=== PATIENT | male | born 2000 | race Caucasian/White ===

== ENCOUNTER 2023-10-22 23:56 | Emergency (ER) | payer BC, SELFPAY ==
[2023-10-22 23:59] VITALS: BP 128/74; PULSE 77; RESP 20; TEMP 36.9; O2SAT 100
[2023-10-23] MEDS: ACETAMINOPHEN 500 MG TABLET 1000 MG PO (02:01)
--- NOTE | 2023-10-23 02:08 | ED.LOWEXIN ---
HPI - Extremity Injury (Lower) General Chief Complaint: Extremity Injury, Lower Stated Complaint: ankle pain Time Seen by Provider: 10/23/23 01:00 History of Present Illness HPI Narrative: 23-year-old male presents to the emergency department for right foot pain other injury that occurred today. Patient states he was playing pickle ball when he inverted his right ankle and felt a pop. States he played the rest of the night on his foot and later it became more painful and swollen. Denies other injuries. Related Data Allergies Allergy/AdvReac Type Severity Reaction Status Date / Time No Known Allergies Allergy Unverified 11/18/13 18:58 Review of Systems Review of Systems: All systems reviewed & are unremarkable except as noted in HPI and below Exam Narrative: GENERAL: Well-appearing, well-nourished, and in no acute distress. HEAD: Normocephalic, atraumatic. NECK: Supple. CHEST: Clear to auscultation. No respiratory distress. HEART: Regular rate and rhythm. No murmur heard. Normal peripheral pulses. EXTREMITIES:RLE: Tenderness and edema over the dorsum of the 3rd through 5th proximal metatarsals and tarsal bones. No obvious deformity. No tenderness to the ankle or tib-fib. No tenderness remainder lower extremity. Cap refill less than 2. Sensation intact. DP pulse 2 +. SKIN: Warm, dry, no rash. NEURO: No focal deficits. Alert and oriented x3 Course Vital Signs Vital signs: Vital Signs Temperature 98.4 F 10/22/23 23:59 Pulse Rate 77 10/22/23 23:59 Respiratory Rate 20 10/22/23 23:59 Blood Pressure 128/74 10/22/23 23:59 Pulse Oximetry 100 10/22/23 23:59 Oxygen Delivery Room Air 10/22/23 23:59 Temperature 98.4 F 10/22/23 23:59 Pulse Rate 77 10/22/23 23:59 Respiratory Rate 20 10/22/23 23:59 Blood Pressure 128/74 10/22/23 23:59 Pulse Oximetry 100 10/22/23 23:59 Oxygen Delivery Room Air 10/22/23 23:59 MDM - Extremity Injury (Lower) MDM Narrative Medical decision making narrative: 23-year-old male presents to the emergency department for right foot pain after mechanical injury that occurred today while playing pickleball. Triage vitals are stable. Exam significant for the above. He is neurovascularly intact. X-rays reviewed by myself and Dr. Yen show no acute osseous abnormality. Imaging discussed with patient and father at bedside. He was placed in a Carlo wrap and provided crutches, Tylenol and denies pack. Discussed RICE and follow-up with PCP. Strict ED return precautions provided. They are agreeable to the plan verbalized understanding. Discharged in stable condition. Discharge Plan Discharge Clinical Impression: Foot sprain Qualifiers: Encounter type: initial encounter Laterality: right Qualified Code(s): S93.601A - Unspecified sprain of right foot, initial encounter Patient Disposition: Home, Self-Care Condition: Stable Instructions: Antibiotic Form, Foot Sprain (ED) Additional Instructions: You were evaluated in the emergency department for foot pain. The x-ray showed no broken bones. Please rest, ice, elevate and compression foot and follow-up closely with your primary care provider. Return to the emergency department if you develop worsening pain or other concerning symptoms. Follow-up/Referrals: Tyesha Cardoso MD [Primary Care Provider] -
[2023-10-23 02:24] VITALS: BP 120/82; PULSE 74; RESP 15; O2SAT 100
== END 2023-10-23 02:26 | disposition home or self-care (01) ==
PROVIDERS: Emergency Provider Physician Assistant; PCP Pediatrics
DX: S93.601A Unspecified sprain of right foot, initial encounter (principal); X50.9XXA Other and unspecified overexertion or strenuous movements or postures, initial encounter; Y93.79 Activity, other specified sports and athletics
CPT/HCPCS: 73610; 73630; 99283; A9270